=== PATIENT | male | born 1980 | race Two or more races ===

== ENCOUNTER 2021-10-18 05:57 | Day surgery (SDC) | payer OTHER ==
[~2021-10-18] VITALS: Ht 172.7 cm; Wt 156.9 kg
[~2021-10-18 05:57] MED LIST: CRESTOR10 MG PO; DILTIAZEM ER60 MG PO; GLIMEPIRIDE2 MG; HUMALOG100 UNIT/2; JANUMET 50-1,01 EACH PO; LANTUS SOL100 UNIT/1; LOSARTAN-HCTZ1 EAC1 PO
== END 2021-10-18 14:50 | disposition home or self-care (01) ==
LOC: CIR.AMB 05:57
PROVIDERS: ATTEND Colon & Rectal Surgery
DX: K60.1 Chronic anal fissure (principal); Z20.822 Contact with and (suspected) exposure to COVID-19; K62.4 Stenosis of anus and rectum; I10 Essential (primary) hypertension; E78.5 Hyperlipidemia, unspecified; Z86.16 Personal history of COVID-19; J45.909 Unspecified asthma, uncomplicated; Z99.89 Dependence on other enabling machines and devices; G47.33 Obstructive sleep apnea (adult) (pediatric); K21.9 Gastro-esophageal reflux disease without esophagitis; G43.909 Migraine, unspecified, not intractable, without status migrainosus; E11.9 Type 2 diabetes mellitus without complications; Z79.84 Long term (current) use of oral hypoglycemic drugs